=== PATIENT | male | born 1945 | race Caucasian/White ===

== ENCOUNTER 2021-04-30 10:18 | Emergency (ER) | payer OTHER ==
[~2021-04-30] VITALS: Ht 180.3 cm; Wt 93.9 kg
[2021-04-30 11:35] VITALS: BP 155/81
== END 2021-04-30 12:31 | disposition home or self-care (01) ==
LOC: ER 10:18
DX: M19.012 Primary osteoarthritis, left shoulder (principal); I25.10 Atherosclerotic heart disease of native coronary artery without angina pectoris; E11.9 Type 2 diabetes mellitus without complications; Z95.1 Presence of aortocoronary bypass graft
CPT/HCPCS: 73030